=== PATIENT | female | born 1955 | race Caucasian/White ===

== ENCOUNTER 2017-02-26 11:27 | Inpatient (IN) | payer MEDICARE ==
[2017-02-26] VITALS (10 sets, daily range): BP systolic 102–129; BP diastolic 46–62
[~2017-02-26] VITALS: Ht 160 cm; Wt 74.6 kg
[~2017-02-26 11:27] MED LIST: ACTOS15 MG PO; ACTOS30 MG PO; ALEVE220 M1 OR; ALEVE220 M1 PO; AMOXICILLIN500 MG PO; ASPIRIN LOW81 M1 PO; ELIMITE60 GM EX; ENALAPRIL5 MG PO; FLUZONE SPLT1 M1 IM; FOSAMAX PLUS1 TAB PO; GLIMEPIRIDE4 MG PO; LANTUS100 MG/ML SC; LOVASTATIN20 MG PO; METFORMIN500 M2 PO; METHIMAZOLE5 MG OR; METHIMAZOLE5 MG PO; NAPROSYN500 MG PO; ULTRAM50 MG PO
[2017-02-26 12:21] LABS: HEMATOCRIT 52.2 % (37.0-47.0); HEMOGLOBIN 17.4 g/dl (12.0-16.0); IMMATURE GRANULOCYTES 1.3 % (0.0-1.0); MEAN CELL VOLUME 95.4 fL CALC (80.0-100.0); MEAN CORPUSCULAR HGB 31.8 pG CALC (26.0-32.0); MEAN CORPUSCULAR HGB CONC 33.3 g/L CALC (32.0-36.0); NEUT# 16.36 thou/uL (2.00-7.15); RED BLOOD COUNT 5.47 mill/uL (4.20-5.60); RED CELL DISTRI WIDTH 13.2 % (11.5-15.5)
[2017-02-26 12:23] LABS: URINE BLOOD DIPSTICK SMALL (NEGATIVE); URINE CLARITY CLEAR; URINE COLOR YELLOW; URINE GLUCOSE - DIPSTICK >=1000 mg/dL (NEGATIVE); URINE KETONE >=80 mg/dL (NEGATIVE); URINE LEUK ESTERASE NEGATIVE (NEGATIVE); URINE NITRITE - DIPSTICK NEGATIVE (Negative); URINE PH 5.5 (4.5-8.0); URINE PROTEIN - DIPSTICK TRACE mg/dL (NEG-TRACE); URINE SPECIFIC GRAVITY 1.025; URINE UROBILINOGEN - DIPSTICK 0.2 E.U./dL (0.2)
[2017-02-26 12:27] LABS: URINE BILIRUBIN - DIPSTICK NEGATIVE (NEGATIVE)
[2017-02-26 12:32] LABS: URINE SQUAMOUS EPITHELIAL CELL RARE EPI/hpf (0-FEW); URINE WBC 0-2 WBC/hpf (0-5)
[2017-02-26 12:39] LABS: ALBUMIN 5.7 g/dL (3.2-5.0); ALKALINE PHOSPHATASE 83 u/l (38-126); AMYLASE 74 u/l (30-110); BILIRUBIN, TOTAL 0.7 mg/dL (0.0-1.4); BUN 33 mg/dL (7-17); BUN/CREATININE RATIO 25 (12-20 (CALC)); CALCIUM 10.3 mg/dL (8.4-10.2); CHLORIDE 95 mmol/l (95-108); CREATININE 1.3 mg/dL (0.5-1.0); GFR 42 ML/MIN (>=60 (CALC)); GFR FOR AFR.AMER. 51 ML/MIN (>=60 (CALC)); GLUCOSE 415 mg/dL (65-105); LIPASE 183 u/l (23-300); SGOT/AST 22 u/l (14-36); SGPT/ALT 20 u/l (9-52); SODIUM 138 mmol/l (137-146); TOTAL PROTEIN 9.3 g/dL (6.3-8.2)
[2017-02-26 12:40] LABS: ANION GAP 42 (6-22 (CALC))
[2017-02-26 12:42] LABS: CARBON DIOXIDE 6 mmol/l (22-30); POTASSIUM 5.2 mmol/l (3.5-5.1)
[2017-02-26 12:53] LABS: MYOGLOBIN 44 ng/mL (0 - 62)
[2017-02-26] MEDS ORDERED: SYNJARDY 12.5-11 TAB (15:12)
[2017-02-26 18:37] LABS: BUN 25 mg/dL (7-17); BUN/CREATININE RATIO 38 (12-20 (CALC)); CARBON DIOXIDE 12 mmol/l (22-30); CREATININE 0.7 mg/dL (0.5-1.0); GFR > 60 ML/MIN (>=60 (CALC)); GFR FOR AFR.AMER. > 60 ML/MIN (>=60 (CALC)); GLUCOSE 273 mg/dL (65-105); POTASSIUM 4.7 mmol/l (3.5-5.1); SODIUM 134 mmol/l (137-146)
[2017-02-26 18:44] LABS: ANION GAP 21 (6-22 (CALC)); CALCIUM 8.3 mg/dL (8.4-10.2); CHLORIDE 106 mmol/l (95-108)
[2017-02-27] VITALS (14 sets, daily range): BP systolic 94–115; BP diastolic 41–67
[2017-02-27 06:07] LABS: HEMATOCRIT 35.6 % (37.0-47.0); MEAN CELL VOLUME 96.5 fL CALC (80.0-100.0); MEAN CORPUSCULAR HGB 32.5 pG CALC (26.0-32.0); MEAN CORPUSCULAR HGB CONC 33.7 g/L CALC (32.0-36.0); RED BLOOD COUNT 3.69 mill/uL (4.20-5.60); RED CELL DISTRI WIDTH 13.1 % (11.5-15.5)
[2017-02-27 06:24] LABS: ANION GAP 12 (6-22 (CALC)); BUN 12 mg/dL (7-17); BUN/CREATININE RATIO 22 (12-20 (CALC)); CALCIUM 8.2 mg/dL (8.4-10.2); CARBON DIOXIDE 18 mmol/l (22-30); CHLORIDE 109 mmol/l (95-108); CREATININE 0.5 mg/dL (0.5-1.0); GFR > 60 ML/MIN (>=60 (CALC)); GFR FOR AFR.AMER. > 60 ML/MIN (>=60 (CALC)); GLUCOSE 156 mg/dL (65-105); MAGNESIUM 2.1 mg/dL (1.6-2.3); POTASSIUM 3.5 mmol/l (3.5-5.1); SODIUM 136 mmol/l (137-146)
[2017-02-28 04:51] LABS: HEMATOCRIT 34.8 % (37.0-47.0); HEMOGLOBIN 11.9 g/dl (12.0-16.0); MEAN CELL VOLUME 94.3 fL CALC (80.0-100.0); MEAN CORPUSCULAR HGB 32.2 pG CALC (26.0-32.0); MEAN CORPUSCULAR HGB CONC 34.2 g/L CALC (32.0-36.0); RED BLOOD COUNT 3.69 mill/uL (4.20-5.60); RED CELL DISTRI WIDTH 13.1 % (11.5-15.5)
[2017-02-28 05:04] LABS: ALBUMIN 3.2 g/dL (3.2-5.0); ANION GAP 12 (6-22 (CALC)); BUN 8 mg/dL (7-17); BUN/CREATININE RATIO 14 (12-20 (CALC)); CALCIUM 8.4 mg/dL (8.4-10.2); CARBON DIOXIDE 22 mmol/l (22-30); CHLORIDE 107 mmol/l (95-108); CREATININE 0.5 mg/dL (0.5-1.0); GFR > 60 ML/MIN (>=60 (CALC)); GFR FOR AFR.AMER. > 60 ML/MIN (>=60 (CALC)); GLUCOSE 97 mg/dL (65-105); POTASSIUM 3.6 mmol/l (3.5-5.1); SODIUM 138 mmol/l (137-146)
[2017-02-28 05:08] VITALS: BP 106/69
[2017-02-28 08:12] VITALS: BP 105/60
[2017-02-28] MEDS ORDERED: TOUJEO SOL300 UNIT/M SC (11:21)
== END 2017-02-28 12:05 | disposition home or self-care (01) | DRG 639 ==
LOC: ENPENDDIS → ED 11:27 → ED-I 12:11 → ED 12:11 → ED-I 14:52 → ED 15:12 → MS2 15:13 → ICU 15:13 → MS2 02-27 12:58
PROVIDERS: Emergency Medicine; ADMIT Internal Medicine; ATTEND Internal Medicine
DX: E13.10 Other specified diabetes mellitus with ketoacidosis without coma (principal); I65.23 Occlusion and stenosis of bilateral carotid arteries; I10 Essential (primary) hypertension; J44.9 Chronic obstructive pulmonary disease, unspecified; E78.5 Hyperlipidemia, unspecified; F17.210 Nicotine dependence, cigarettes, uncomplicated; I25.10 Atherosclerotic heart disease of native coronary artery without angina pectoris; M81.0 Age-related osteoporosis without current pathological fracture; R07.89 Other chest pain; E86.0 Dehydration; E05.90 Thyrotoxicosis, unspecified without thyrotoxic crisis or storm; Z79.4 Long term (current) use of insulin; Z82.49 Family history of ischemic heart disease and other diseases of the circulatory system
CPT/HCPCS: S0164

== ENCOUNTER 2018-12-01 16:10 | Emergency (ER) | payer MEDICARE ==
[~2018-12-01] VITALS: Ht 160 cm; Wt 73.0 kg
[~2018-12-01 16:10] MED LIST changes: +SYNJARDY 12.5-11 TAB; +TOUJEO SOL300 UNIT/M SC
[2018-12-01 19:05] LABS: IMMATURE GRANULOCYTES 0.6 % (0.0-5.0); MEAN CELL VOLUME 97.3 fL CALC (80.0-100.0); MEAN CORPUSCULAR HGB 31.3 pG CALC (26.0-32.0); MEAN CORPUSCULAR HGB CONC 32.1 g/L CALC (32.0-36.0); NEUT# 9.48 thou/uL (2.00-7.15); RED BLOOD COUNT 5.28 mill/uL (4.20-5.60); RED CELL DISTRI WIDTH 13.1 % (11.5-15.5)
[2018-12-01 19:08] LABS: HEMATOCRIT 51.4 % (37.0-47.0); HEMOGLOBIN 16.5 g/dl (12.0-16.0)
[2018-12-01 19:35] LABS: ALKALINE PHOSPHATASE 82 u/l (38-126); AMYLASE 35 u/l (30-110); BILIRUBIN, TOTAL 0.7 mg/dL (0.0-1.4); BUN 25 mg/dL (8-23); BUN/CREATININE RATIO 25 (12-20 (CALC)); CHLORIDE 98 mmol/l (95-108); GFR 56 ML/MIN (>=60 (CALC)); GFR FOR AFR.AMER. > 60 ML/MIN (>=60 (CALC)); LIPASE 46 u/l (23-300); SGOT/AST 14 u/l (9-36); TOTAL PROTEIN 7.8 g/dL (6.3-8.2)
[2018-12-01 19:36] LABS: ALBUMIN 5.3 g/dL (3.2-5.0); ANION GAP 35 (6-22 (CALC)); CARBON DIOXIDE 10 mmol/l (22-30); POTASSIUM 5.4 mmol/l (3.5-5.1); SODIUM 138 mmol/l (137-146)
[2018-12-01 19:52] LABS: URINE BLOOD DIPSTICK NEGATIVE (NEGATIVE); URINE COLOR YELLOW; URINE GLUCOSE - DIPSTICK >=1000 mg/dL (NEGATIVE); URINE KETONE >=80 mg/dL (NEGATIVE); URINE LEUK ESTERASE NEGATIVE (NEGATIVE); URINE NITRITE - DIPSTICK NEGATIVE (Negative); URINE PROTEIN - DIPSTICK NEGATIVE (NEG-TRACE); URINE UROBILINOGEN - DIPSTICK 0.2 E.U./dL (0.2)
[2018-12-01 19:53] LABS: URINE BILIRUBIN - DIPSTICK MODERATE (NEGATIVE)
[2018-12-01] MEDS ORDERED: ZOFRAN4 MG/TAB PO (21:14)
[2018-12-01 22:00] VITALS: BP 103/58
== END 2018-12-01 22:00 | disposition home or self-care (01) ==
LOC: ED 16:10
DX: K29.70 Gastritis, unspecified, without bleeding (principal); R10.84 Generalized abdominal pain; R11.2 Nausea with vomiting, unspecified; M54.5 Low back pain; F17.210 Nicotine dependence, cigarettes, uncomplicated; E11.65 Type 2 diabetes mellitus with hyperglycemia; Z79.4 Long term (current) use of insulin

== ENCOUNTER 2018-12-03 23:13 | Inpatient (IN) | payer MEDICARE ==
[~2018-12-03] VITALS: Ht 160 cm; Wt 65.4 kg
[~2018-12-03 23:13] MED LIST changes: +ZOFRAN4 MG/TAB PO
[2018-12-04] VITALS (17 sets, daily range): BP systolic 100–135; BP diastolic 44–88
[2018-12-04 00:26] LABS: HEMATOCRIT 52.4 % (37.0-47.0); IMMATURE GRANULOCYTES 0.8 % (0.0-5.0); MEAN CORPUSCULAR HGB CONC 30.5 g/L CALC (32.0-36.0); NEUT# 26.21 thou/uL (2.00-7.15)
[2018-12-04 00:30] LABS: MEAN CELL VOLUME 104.8 fL CALC (80.0-100.0)
[2018-12-04 00:55] LABS: ALBUMIN 4.4 g/dL (3.2-5.0); ALKALINE PHOSPHATASE 81 u/l (38-126); BILIRUBIN, TOTAL 0.5 mg/dL (0.0-1.4); BUN 37 mg/dL (8-23); CHLORIDE 95 mmol/l (95-108); POTASSIUM 5.1 mmol/l (3.5-5.1); SGOT/AST 19 u/l (9-36); SODIUM 132 mmol/l (137-146); TOTAL PROTEIN 7.1 g/dL (6.3-8.2)
[2018-12-04 01:31] LABS: ANION GAP 37 (6-22 (CALC)); BUN/CREATININE RATIO 19 (12-20 (CALC)); GFR 25 ML/MIN (>=60 (CALC)); GFR FOR AFR.AMER. 31 ML/MIN (>=60 (CALC))
[2018-12-04 01:32] LABS: MYOGLOBIN 140 ng/mL (0 - 62)
[2018-12-04 03:00] LABS: URINE BLOOD DIPSTICK SMALL (NEGATIVE); URINE COLOR YELLOW; URINE GLUCOSE - DIPSTICK >=1000 mg/dL (NEGATIVE); URINE KETONE >=80 mg/dL (NEGATIVE); URINE LEUK ESTERASE NEGATIVE (NEGATIVE); URINE NITRITE - DIPSTICK NEGATIVE (Negative); URINE PROTEIN - DIPSTICK 30 mg/dL (NEG-TRACE); URINE UROBILINOGEN - DIPSTICK 0.2 E.U./dL (0.2)
[2018-12-04 03:02] LABS: URINE BILIRUBIN - DIPSTICK NEGATIVE (NEGATIVE)
[2018-12-04 03:13] LABS: URINE RBC 0-2 RBC/hpf (0-5); URINE WBC 0-2 WBC/hpf (0-5)
[2018-12-04 03:14] LABS: URINE FINE GRAN CAST FEW lpf; URINE HYALINE CAST FEW lpf (NONE-RARE); URINE SQUAMOUS EPITHELIAL CELL RARE EPI/hpf (0-FEW)
[2018-12-04 03:16] LABS: URINE BACTERIA MODERATE hpf
[2018-12-04 03:17] LABS: URINE MUCUS FEW hpf (NONE-FEW)
[2018-12-04 05:33] LABS: HEMOGLOBIN 14.2 g/dl (12.0-16.0); IMMATURE GRANULOCYTES 0.9 % (0.0-5.0); MEAN CORPUSCULAR HGB 31.6 pG CALC (26.0-32.0); NEUT# 20.65 thou/uL (2.00-7.15); RED BLOOD COUNT 4.49 mill/uL (4.20-5.60)
[2018-12-04 05:36] LABS: MEAN CELL VOLUME 95.8 fL CALC (80.0-100.0)
[2018-12-04 09:48] LABS: HEMOGLOBIN 13.8 g/dl (12.0-16.0); IMMATURE GRANULOCYTES 0.7 % (0.0-5.0); MEAN CELL VOLUME 94.9 fL CALC (80.0-100.0); MEAN CORPUSCULAR HGB 31.9 pG CALC (26.0-32.0); MEAN CORPUSCULAR HGB CONC 33.7 g/L CALC (32.0-36.0); NEUT# 17.47 thou/uL (2.00-7.15); RED BLOOD COUNT 4.32 mill/uL (4.20-5.60)
[2018-12-04 10:29] LABS: BARBITURATES NEGATIVE (NEGATIVE); COCAINE NEGATIVE (NEGATIVE); METHADONE NEGATIVE (NEGATIVE); OXCYCODONE NEGATIVE (NEGATIVE); TETRAHYDROCANNABIONOL NEGATIVE (NEGATIVE); TRICYLIC ANTIDEPRESSANTS NEGATIVE (NEGATIVE)
[2018-12-04 10:43] LABS: ALBUMIN 3.6 g/dL (3.2-5.0); ALKALINE PHOSPHATASE 70 u/l (38-126); BILIRUBIN, TOTAL 0.4 mg/dL (0.0-1.4); BUN 27 mg/dL (8-23); CARBON DIOXIDE 12 mmol/l (22-30); POTASSIUM 4.9 mmol/l (3.5-5.1); SGOT/AST 16 u/l (9-36); SODIUM 136 mmol/l (137-146); TOTAL PROTEIN 5.8 g/dL (6.3-8.2)
[2018-12-04 10:44] LABS: ANION GAP 20 (6-22 (CALC)); BUN/CREATININE RATIO 39 (12-20 (CALC)); CHLORIDE 109 mmol/l (95-108); CREATININE 0.7 mg/dL (0.5-1.0); GFR > 60 ML/MIN (>=60 (CALC)); GFR FOR AFR.AMER. > 60 ML/MIN (>=60 (CALC))
[2018-12-04 16:22] LABS: ALBUMIN 3.6 g/dL (3.2-5.0); ALKALINE PHOSPHATASE 66 u/l (38-126); ANION GAP 22 (6-22 (CALC)); BILIRUBIN, TOTAL 0.4 mg/dL (0.0-1.4); BUN 21 mg/dL (8-23); BUN/CREATININE RATIO 33 (12-20 (CALC)); CARBON DIOXIDE 10 mmol/l (22-30); CHLORIDE 110 mmol/l (95-108); CREATININE 0.6 mg/dL (0.5-1.0); GFR > 60 ML/MIN (>=60 (CALC)); GFR FOR AFR.AMER. > 60 ML/MIN (>=60 (CALC)); POTASSIUM 4.8 mmol/l (3.5-5.1); SGOT/AST 13 u/l (9-36); SODIUM 137 mmol/l (137-146); TOTAL PROTEIN 5.7 g/dL (6.3-8.2)
[2018-12-04 21:37] LABS: ALBUMIN 3.4 g/dL (3.2-5.0); ALKALINE PHOSPHATASE 63 u/l (38-126); ANION GAP 22 (6-22 (CALC)); BILIRUBIN, TOTAL 0.4 mg/dL (0.0-1.4); BUN 19 mg/dL (8-23); BUN/CREATININE RATIO 30 (12-20 (CALC)); CARBON DIOXIDE 11 mmol/l (22-30); CHLORIDE 109 mmol/l (95-108); CREATININE 0.6 mg/dL (0.5-1.0); GFR > 60 ML/MIN (>=60 (CALC)); GFR FOR AFR.AMER. > 60 ML/MIN (>=60 (CALC)); POTASSIUM 4.2 mmol/l (3.5-5.1); SGOT/AST 12 u/l (9-36); SODIUM 137 mmol/l (137-146); TOTAL PROTEIN 5.5 g/dL (6.3-8.2)
[2018-12-05] VITALS (22 sets, daily range): BP systolic 11–141; BP diastolic 36–61
[2018-12-05 05:39] LABS: HEMATOCRIT 35.2 % (37.0-47.0); HEMOGLOBIN 11.9 g/dl (12.0-16.0); IMMATURE GRANULOCYTES 0.3 % (0.0-5.0); MEAN CELL VOLUME 94.9 fL CALC (80.0-100.0); MEAN CORPUSCULAR HGB 32.1 pG CALC (26.0-32.0); MEAN CORPUSCULAR HGB CONC 33.8 g/L CALC (32.0-36.0); NEUT# 8.85 thou/uL (2.00-7.15); RED BLOOD COUNT 3.71 mill/uL (4.20-5.60); RED CELL DISTRI WIDTH 13.3 % (11.5-15.5)
[2018-12-05 06:26] LABS: ALBUMIN 2.9 g/dL (3.2-5.0); ALKALINE PHOSPHATASE 54 u/l (38-126); AMYLASE 30 u/l (30-110); ANION GAP 15 (6-22 (CALC)); BILIRUBIN, TOTAL 0.3 mg/dL (0.0-1.4); BUN 13 mg/dL (8-23); BUN/CREATININE RATIO 24 (12-20 (CALC)); CARBON DIOXIDE 16 mmol/l (22-30); CHLORIDE 110 mmol/l (95-108); CREATININE 0.5 mg/dL (0.5-1.0); GFR > 60 ML/MIN (>=60 (CALC)); GFR FOR AFR.AMER. > 60 ML/MIN (>=60 (CALC)); LIPASE 63 u/l (23-300); MAGNESIUM 2.2 mg/dL (1.6-2.3); POTASSIUM 3.5 mmol/l (3.5-5.1); SGOT/AST 13 u/l (9-36); SODIUM 137 mmol/l (137-146)
[2018-12-05 09:49] LABS: ANION GAP 15 (6-22 (CALC)); BUN 12 mg/dL (8-23); BUN/CREATININE RATIO 21 (12-20 (CALC)); CARBON DIOXIDE 17 mmol/l (22-30); CHLORIDE 110 mmol/l (95-108); CREATININE 0.6 mg/dL (0.5-1.0); GFR > 60 ML/MIN (>=60 (CALC)); GFR FOR AFR.AMER. > 60 ML/MIN (>=60 (CALC)); POTASSIUM 3.7 mmol/l (3.5-5.1); SODIUM 138 mmol/l (137-146)
[2018-12-06] VITALS (9 sets, daily range): BP systolic 91–134; BP diastolic 44–68
[2018-12-06 05:02] LABS: HEMATOCRIT 34.2 % (37.0-47.0); HEMOGLOBIN 11.8 g/dl (12.0-16.0); IMMATURE GRANULOCYTES 0.1 % (0.0-5.0); MEAN CELL VOLUME 91.4 fL CALC (80.0-100.0); MEAN CORPUSCULAR HGB 31.6 pG CALC (26.0-32.0); MEAN CORPUSCULAR HGB CONC 34.5 g/L CALC (32.0-36.0); NEUT# 5.08 thou/uL (2.00-7.15); RED BLOOD COUNT 3.74 mill/uL (4.20-5.60); RED CELL DISTRI WIDTH 13.3 % (11.5-15.5)
[2018-12-06 05:38] LABS: ALKALINE PHOSPHATASE 49 u/l (38-126); BILIRUBIN, TOTAL 0.5 mg/dL (0.0-1.4); BUN 8 mg/dL (8-23); BUN/CREATININE RATIO 17 (12-20 (CALC)); CARBON DIOXIDE 20 mmol/l (22-30); CHLORIDE 111 mmol/l (95-108); CREATININE 0.5 mg/dL (0.5-1.0); GFR > 60 ML/MIN (>=60 (CALC)); GFR FOR AFR.AMER. > 60 ML/MIN (>=60 (CALC)); MAGNESIUM 2.2 mg/dL (1.6-2.3); SGOT/AST 14 u/l (9-36); SODIUM 141 mmol/l (137-146)
[2018-12-06 05:51] LABS: ANION GAP 13 (6-22 (CALC))
[2018-12-06 05:52] LABS: POTASSIUM 2.9 mmol/l (3.5-5.1)
[2018-12-07 00:20] VITALS: BP 142/75
[2018-12-07 04:49] VITALS: BP 111/51
[2018-12-07 05:15] LABS: HEMATOCRIT 34.5 % (37.0-47.0); HEMOGLOBIN 11.8 g/dl (12.0-16.0); IMMATURE GRANULOCYTES 0.3 % (0.0-5.0); MEAN CELL VOLUME 92.5 fL CALC (80.0-100.0); MEAN CORPUSCULAR HGB 31.6 pG CALC (26.0-32.0); MEAN CORPUSCULAR HGB CONC 34.2 g/L CALC (32.0-36.0); NEUT# 3.42 thou/uL (2.00-7.15); RED BLOOD COUNT 3.73 mill/uL (4.20-5.60); RED CELL DISTRI WIDTH 13.4 % (11.5-15.5)
[2018-12-07 05:34] LABS: ALKALINE PHOSPHATASE 57 u/l (38-126); ANION GAP 12 (6-22 (CALC)); BILIRUBIN, TOTAL 0.5 mg/dL (0.0-1.4); BUN 11 mg/dL (8-23); BUN/CREATININE RATIO 26 (12-20 (CALC)); CARBON DIOXIDE 26 mmol/l (22-30); CHLORIDE 108 mmol/l (95-108); CREATININE 0.4 mg/dL (0.5-1.0); GFR > 60 ML/MIN (>=60 (CALC)); GFR FOR AFR.AMER. > 60 ML/MIN (>=60 (CALC)); MAGNESIUM 2.3 mg/dL (1.6-2.3); POTASSIUM 3.3 mmol/l (3.5-5.1); SGOT/AST 16 u/l (9-36); SODIUM 142 mmol/l (137-146)
[2018-12-07 08:33] VITALS: BP 107/64
[2018-12-07 15:15] VITALS: BP 108/50
[2018-12-07 19:35] VITALS: BP 128/61
[2018-12-08 04:12] VITALS: BP 113/62
[2018-12-08 06:11] LABS: ALBUMIN 3.4 g/dL (3.2-5.0); BUN 9 mg/dL (8-23); CARBON DIOXIDE 30 mmol/l (22-30); CHLORIDE 107 mmol/l (95-108); CREATININE 0.4 mg/dL (0.5-1.0); GFR > 60 ML/MIN (>=60 (CALC)); GFR FOR AFR.AMER. > 60 ML/MIN (>=60 (CALC)); MAGNESIUM 2.3 mg/dL (1.6-2.3); POTASSIUM 3.1 mmol/l (3.5-5.1); SODIUM 144 mmol/l (137-146)
[2018-12-08 07:40] VITALS: BP 112/50
[2018-12-08] MEDS ORDERED: DOXYCYC MONO100 M2 PO (14:03)
[2018-12-08 16:09] VITALS: BP 122/65
== END 2018-12-08 15:30 | disposition home health service (06) | DRG 637 ==
LOC: ED 23:13 → ED-I 12-04 01:48 → ED 12-04 02:28 → ICU 12-04 02:29 → MS2 12-06 12:50
PROVIDERS: Family Medicine; Internal Medicine Nephrology; ADMIT Internal Medicine; ATTEND Internal Medicine
PROC: 0T9B70Z Drainage of Bladder with Drainage Device, Via Natural or Artificial Opening (ICD-10-PCS; principal; 2018-12-04)
DX: E11.10 Type 2 diabetes mellitus with ketoacidosis without coma (principal); J18.9 Pneumonia, unspecified organism; N17.9 Acute kidney failure, unspecified; E87.1 Hypo-osmolality and hyponatremia; J44.0 Chronic obstructive pulmonary disease with (acute) lower respiratory infection; J44.1 Chronic obstructive pulmonary disease with (acute) exacerbation; E11.22 Type 2 diabetes mellitus with diabetic chronic kidney disease; I12.9 Hypertensive chronic kidney disease with stage 1 through stage 4 chronic kidney disease, or unspecified chronic kidney disease; N18.2 Chronic kidney disease, stage 2 (mild); E11.21 Type 2 diabetes mellitus with diabetic nephropathy; E87.6 Hypokalemia; E78.5 Hyperlipidemia, unspecified; F17.200 Nicotine dependence, unspecified, uncomplicated; M19.90 Unspecified osteoarthritis, unspecified site; E05.90 Thyrotoxicosis, unspecified without thyrotoxic crisis or storm; Z91.11 Patient's noncompliance with dietary regimen; Z79.4 Long term (current) use of insulin; Z91.14 Patient's other noncompliance with medication regimen
CPT/HCPCS: J1650